=== PATIENT | male | born 1965 | race Caucasian/White ===

== ENCOUNTER 2016-11-08 11:37 | Observation (INO) ==
[2016-11-08] MEDS ORDERED: NITROGLYCERIN 2% OINT 1 INCH/GM PACK TOP STA (11:48)
[2016-11-08] MEDS ORDERED: MORPHINE 2 MG/1 ML SYRINGE IV STA (11:48)
[2016-11-08] MEDS ORDERED: ENOXAPARIN 100 MG/ML SYRINGE SUBCUT STA (11:48)
[2016-11-08] MEDS ORDERED: METOPROLOL TARTRATE 5 MG/5 ML VIAL IV STA (11:48)
[2016-11-08] MEDS ORDERED: ONDANSETRON 4 MG/2 ML VIAL IV STA (11:48)
[2016-11-08] MEDS ORDERED: ASPIRIN 325 MG TABLET PO STA (11:48)
[2016-11-08 12:00] LABS: Basophils % 0.6 % (0.0-0.8); Eosinophils # 0.5 10*3/uL (0.0-0.87); Eosinophils % 6.3 % (0.00-10.9); Hematocrit 42.1 VOL% (42.0-52.0); Hemoglobin 13.8 GM/DL (14.0-18.0); Immature Granulocytes % 0.1 %; Immature Granulocytes Absolute 0.01 #; Lymphocytes # 2.1 10*3/uL (1.4-4.0); Lymphocytes % 29.1 % (21.2-54.2); Mean Corpuscular HGB Conc 32.8 GM/DL (32-36); Mean Corpuscular Hemoglobin 29 PG (27-34); Mean Corpuscular Volume 87.5 FL (87-102); Mean Platelet Volume 9.7 FL (9.6-12.0); Monocytes # 0.6 10*3/uL (0.11-0.8); Monocytes % 8.7 % (1.7-12.7); Neutrophils # 3.9 10*3/uL (1.4-7.4); Neutrophils % 55.2 % (38.7-73.9); Platelet Count 263 T/CUMM (130-400); Red Blood Count 4.81 MC/CUMM (3.8-5.5); Red Cell Distribution Width 13.2 % (9.3-17.3); White Blood Count 7.1 T/CUMM (4-12)
[2016-11-08] MEDS ORDERED: METOPROLOL TARTRATE 5 MG/5 ML VIAL IV ONE (12:01)
[2016-11-08] MEDS ORDERED: ONDANSETRON 4 MG/2 ML VIAL ONE (12:01)
[2016-11-08] MEDS ORDERED: MORPHINE 2 MG/1 ML SYRINGE ONE (12:01)
[2016-11-08] MEDS ORDERED: ENOXAPARIN 120 MG/0.8 ML SYRINGE SUBCUT ONE (12:01)
--- NOTE | 2016-11-08 12:01 | Emergency Department Note ---
Angel Oliva Meredith, am scribing for, and in the presence of, Armando Bonilla MD 11: 50. Irene Oliva James D, MD, personally performed the services described in this documentation, ascribed by Key Ortiz in my presence, and it is both accurate and complete . 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 Describes as sharp. +shortness of breath. +diaphoresis. Took aspirin 81mg x 3 prior to arrival. Mode of Arrival: Wheelchair Limitations: No Limitations Source: Patient, Old Records Reviewed, RN Notes Reviewed Time Seen by Provider: 11/08/16 11:48 - History of Present Illness HPI Narrative: Pt is a 51 y/o white male reporting to the ED with c/o sharp, left-sided chest pain which radiates into the left arm, onset 20 minutes PRODUCTION COST ESTIMATOR. He confirms shortness of breath, diaphoresis, and productive cough with white sputum. Pt took 3 Aspirins PRODUCTION COST ESTIMATOR. He has a history of HTN. He had a heart cath [address] Marcelo but she did not find anything abnormal. Onset (ago): minute(s) Consistency: constant Quality: sharp Allergies/Adverse Reactions: Allergies Allergy/AdvReac Type Severity Reaction Status Date / Time No Known Allergies Allergy Verified 11/08/16 11:42 Home Medications: Home Medications Medication Instructions Recorded Confirmed Type Candesartan Cilexetil [Candesartan 16 mg PO QAM 11/08/16 11/08/16 History Cilexetil] Review of System - Review of System 12 point system: reviewed and no additional remarkable complaints except as stated - Review of System Constitutional: Present: as per HPI, diaphoresis Respiratory: Present: as per HPI, cough, other (SOB) Cardiovascular: Present: as per HPI, chest pain Musculoskeletal: Present: as per HPI, arm pain (left radiating from chest) Medical,Surgical,& Family Hx - Medical History Cardio: History of: Hypertension - Surgical History Orthopedic Surgeries: Patient denies;: Total Knee Replacement - Family History Family History: Denies;: Additional Family History - Social History Smoking Status: Never smoker Frequency of Alcohol Use: None Type of Drug Use: None Exam Physical Examination: GENERAL: This is an obese white male in no apparent distress. VITAL SIGNS: Temperature: 98.6, Pulse: 85, Respirations: 20, Blood pressure: 187 /136, O2 Saturation: 99 HEENT: Head is normocephalic and atraumatic. Pupils are equally round and reactive to light. Extraocular movement are intact. Oropharynx is benign with moist mucous membranes. NECK: Neck is soft and supple without tenderness. There are no masses. There is no lymphadenopathy. LUNGS: Lungs are clear to auscultation bilaterally. Chest rises symmetrically. There is no chest wall tenderness. CV: Heart is regular rate and rhythm without murmurs, rubs, or gallops. ABDOMEN: Abdomen is soft, non-tender to palpation. There are no abnormal masses palpated. There is no organomegaly. Bowel sounds are present and active. SKIN: Skin is warm and dry. No rash. EXTREMITIES: Patient has full range of motion without tenderness. There is no pedal edema. NEUROLOGIC: Awake, alert, and oriented x4. Cranial nerves II through XII are grossly intact. There are no motorsensory deficits. PSYCHIATRIC: Normal affect. Normal mood. Vital Signs: Vital Signs Temperature 98.6 F 11/08/16 11:37 Pulse Rate 85 11/08/16 11:37 Respiratory Rate 20 11/08/16 11:37 Blood Pressure 187/136 11/08/16 11:37 O2 Sat by Pulse Oximetry 99 11/08/16 11:37 Course - Consultations Consultation #1: Discussed with cardiology. Patient will be admitted to their service. Time: 12:55 Results - Labs CBC & BMP: 11/08/16 11:47 11/08/16 11:47 Lab Results: I have reviewed the patients labs Labs: Laboratory Tests 11/08/16 11:47 WBC 7.1 RBC 4.81 Hgb 13.8 L Hct 42.1 Plt Count 263 Laboratory Tests 11/08/16 11:47 INR 1.0 PT Patient/Control Mix 10.0 Circ Anticoag PTT 27.3 Laboratory Tests 11/08/16 11/08/16 11:47 11:47 Sodium 142 Potassium 4.2 Chloride 105 Carbon Dioxide 28 BUN 19 H Creatinine 0.80 BUN/Creatinine Ratio 23.00 H Troponin I < 0.015 Globulin 3.7 H Albumin/Globulin Ratio 1.0 L - EKG EKG results: interpreted by ERMD - Impressions EKG: Normal sinus rhythm with a rate of 81, occasional PVCs, left axis deviation , nonspecific ST-T wave changes. - Diagnostic Findings Procedure: Chest x-ray: image reviewed by me, report reviewed by me (No actue cardiopulmonary process. No significant interval change from the previous study. ) Disposition Clinical Impression: Chest pain, Essential hypertension Case discussed with: patient Disposition: Still a Patient Condition: Stable
[2016-11-08] MEDS ORDERED: NITROGLYCERIN SL 0.4 MG TABLET SL ONE (12:02)
[2016-11-08] MEDS: NITROGLYCERIN SL 0.4 MG TABLET SL PRN ×3 (12:07→13:40)
[2016-11-08 12:12] LABS: Partial Thromboplastin Time 27.3 SECS (0-40)
[2016-11-08] MEDS ORDERED: NITROGLYCERIN 2% OINT 1 INCH/GM PACK TOP ONE (12:18)
[2016-11-08 12:25] LABS: Alanine Aminotransferase 34 U/L (16-61); Albumin 3.8 G/DL (3.4-5.0); Alkaline Phosphatase 82 U/L (45-117); Aspartate Amino Transferase 16 U/L (0-37); Bilirubin,Total < 0.39 MG/DL (0.2-1.0); Blood Urea Nitrogen 19 MG/DL (7-18); Glucose 95 MG/DL (74-106); Osmolality,Calculated 284.1 MOS/KG (273-304); Potassium 4.2 MMOL/L (3.5-5.1); Sodium 142 MMOL/L (136-145); Total Protein 7.5 G/DL (6.4-8.3)
--- NOTE | 2016-11-08 12:31 | XRay Report ---
History: Chest pain Date: 11/08/2016 Study: Chest x-ray PA and lateral Comparison exam: Chest x-ray October 03, 2014 The cardiac silhouette is not enlarged. The mediastinal contours are stable. The pulmonary vasculature is not engorged. There is no gross pleural effusion. The lungs are generally clear and well expanded. There is [id number] thoracic spondylosis. Impression: No acute cardiopulmonary process. No significant interval change from the previous study PROCEDURE INTERPRETED AT [facility] DEPARTMENT OF RADIOLOGY Final Report Signed by: Dr. Meryl Horton
[2016-11-08] MEDS ORDERED: MAGNESIUM SULF RIDER 2 GM in PREMIX 1 EACH IV PRN (14:04)
[2016-11-08] MEDS ORDERED: ONDANSETRON 4 MG/2 ML VIAL IV PRN (14:04)
[2016-11-08] MEDS ORDERED: MAGNESIUM SULF RIDER 4 GM in PREMIX 1 EACH IV PRN (14:04)
[2016-11-08] MEDS ORDERED: MORPHINE 2 MG/1 ML SYRINGE IV PRN (14:04)
--- NOTE | 2016-11-08 15:01 | EKG Report ---
Stationary ECG Study [facility] Test Date: 11/08/2016 2:56:28 PM Pat Name: CHARLES ALLAN Department: Room: 277 Gender: M Graphic Production Artist: FLORA : 1965 Requested by: Armando Moctezuma Order Number: [id number] Reading MD: KAROL HINOJOAS Intervals [place] Rate: 75 P: 36 VA: 155 QRS: -30 QRSD: 116 T: 74 QT: 367 QTc: 396 Interpretive Statements SINUS RHYTHM BORDERLINE BORDERLINE LEFT AXIS DEVIATION MODERATE INTRAVENTRICULAR CONDUCTION DELAY NONSPECIFIC T-WAVE ABNORMALITY Electronically Signed On 11-08-16 21:00:21 HI LO DRIVER by KAROL HINOJOSA [email or web address]
--- NOTE | 2016-11-08 15:01 | EKG Report ---
Stationary ECG Study [facility] Test Date: 11/08/2016 11:43:09 AM Pat Name: CHARLES ALLAN Department: Room: 277 Gender: M Classroom Assistant: : 1965 Requested by: Armando Moctezuma Order Number: [id number] Reading MD: KAROL HINOJOSA Intervals [place] Rate: 81 P: 46 AR: 155 QRS: -27 QRSD: 116 T: 75 QT: 348 QTc: 385 Interpretive Statements SINUS RHYTHM WITH VENTRICULAR PREMATURE COMPLEX BORDERLINE LEFT AXIS DEVIATION MODERATE INTRAVENTRICULAR CONDUCTION DELAY NONSPECIFIC T-WAVE ABNORMALITY Electronically Signed On 11-08-16 20:54:55 SALVAGE MEND WORKER by KAROL HINOJOSA [id number]
[2016-11-08] MEDS ORDERED: BISACODYL 5 MG TABLET PO PRN (15:59)
[2016-11-08] MEDS ORDERED: POTASSIUM CHLORIDE 20 MEQ TABLET PO PRN (15:59)
[2016-11-08] MEDS ORDERED: ZALEPLON 5 MG CAPSULE PO PRN (15:59)
[2016-11-08] MEDS ORDERED: ACETAMINOPHEN 325 MG TABLET PO PRN (15:59)
[2016-11-08] MEDS: SODIUM CHLORIDE 0.9% 1,000 ML IV SCH ×2 (16:09→23:24)
--- NOTE | 2016-11-08 20:01 | Cardiology History & Physical ---
Hazel, Faby Li RN, am scribing for, and in the presence of, Faustino Dhaliwal MD 19:57. Assessment and Plan - Time spent with patient Time spent with patient: Greater than 30 minutes (1) Chest pain Status: Acute Assessment and plan: Thus far his troponin is negative. His pain has some typical and atypical features. We will continue to cycle troponins and EKGs. We will set him up for stress test in the morning to rule out for cardiac ischemia. Certainly his ECG did not reveal any acute changes. His pain is certainly atypical for angina or anginal equivalent. We'll plan on carry out stress test tomorrow to evaluate this. Current Visit: Yes (2) Essential hypertension Status: Acute Assessment and plan: Has been elevated since admission. He tells me he does not check his blood pressure routinely. We will resume his home medications and adjust as needed. Current Visit: Yes (3) Obstructive sleep apnea Status: Acute Assessment and plan: Noncompliant. Reports he has not worn his CPAP in 3-4 years. Current Visit: Yes (4) Hyperlipidemia Status: Acute Assessment and plan: Not currently on statin therapy. Will recheck lipid panel in the morning. Current Visit: Yes History of Present Illness Chief complaint: chest pain History of present illness: Mr. Munguia is a 51 year old male who has been seen in the remote past by Dr. Marcelo. His primary care provider is Dr. Young. He has a history of hypertension, obstructive sleep apnea, and hyperlipidemia but is not currently on statin therapy. He is noncompliant with CPAP and reports he has not worn his CPAP in 3-4 years. He has risk factors significant for: hypertension, obesity. He has never smoked. He is a nondrinker and denies drug use. He presents to the emergency room today with complaints of chest pain that has been ongoing for the last 2 weeks. He tells me that the pain was worse today and his boss thought he should come and be evaluated. 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 He tells me his pain is in his left chest wall and radiates to his left shoulder and down his left arm. He describes this pain as being sharp and stabbing and rates it as a 5/10. He reports his chest pain usually comes on when he is at rest at home but he also has pain on exertion when he is at work. Today, he had associated symptoms of diaphoresis and mild shortness of breath. He denies palpitations, dizziness, lightheadedness, syncope, nausea, vomiting, recent fever or chills. He also complains of a cough which has been ongoing for the last 3 weeks although he denies having been sick. He reports he occasionally is able to produce white sputum with his cough. His pain today was unrelieved by nitroglycerin but eventually subsided after administration of morphine. His pain is nonreproducible. He can identify no alleviating or aggravating factors. The patient's pain is certainly atypical for angina or anginal equivalent. He previously underwent left heart catheterizations on 08/20/11 and 01/24/12 for episodes of chest pain. At the time of both catheterizations, he was found to have no significant coronary artery disease with normal ejection fraction. Last echocardiogram was done 11/25/13 and revealed ejection fractin of 50-55%, grade I /IV diastolic dysfunction, mild mitral regurgitation, and mild tricuspid regurgitation. He has a past surgical history of sinus surgery done last year. His troponin on admission was negative. EKG shows sinus rhythm with right bundle branch block and nonspecific T-wave abnormality. We will continue to cycle serial troponins and EKGs. We will let him eat supper tonight and keep him NPO after midnight for stress test in the morning. I do not go Home Medications Medication Instructions Recorded Confirmed Type Candesartan Cilexetil [Candesartan 16 mg PO QAM 11/08/16 11/08/16 History Cilexetil] Allergies Allergy/AdvReac Type Severity Reaction Status Date / Time No Known Allergies Allergy Verified 11/08/16 11:42 - Constitutional Constitutional: Absent: anorexia, chills, daytime sleepiness, excessive sweating , fatigue, fever(s), frequent falls, headache(s), increased appetite, lethargy, malaise, night sweats, weakness, weight gain, weight loss - EENT Eyes: Absent: blurry vision, diplopia, loss of vision Ears: Absent: decreased hearing, ear discharge, ear pain Nose, mouth and throat: Present: epistaxis (had sinus surgery last year and has had nose bleeds off and on). Absent: dysphagia, headache(s), hoarseness, lip swelling, nasal congestion, neck mass, neck pain, sinus pressure, sore throat, throat swelling, tongue swelling, vertigo - Cardiovascular Cardiovascular: Present: chest pain at rest, chest pain with activity, diaphoresis, dyspnea, dyspnea on exertion, radiating jaw, neck or arm pain. Absent: claudication, edema, lightheadedness, orthopnea, palpitations, PND - Respiratory Respiratory: Present: as per HPI, cough (with occasional white sputum production ), dyspnea, dyspnea on exertion, snoring. Absent: hemoptysis, wheezing, pain on inspiration - Gastrointestinal Gastrointestinal: Present: as per HPI. Absent: abdominal pain, bloating, change in bowel habits, constipation, diarrhea, dysphagia, heartburn, hematemesis, hematochezia, loose stools, melena, nausea, vomiting - Genitourinary Genitourinary: Absent: difficulty urinating, dysuria, flank pain, hematuria, urinary frequency, urinary incontinence - Musculoskeletal Musculoskeletal: Absent: arthralgias, back pain, joint swelling, limited range of motion, muscle cramps, muscle weakness, myalgias - Neurological Neurological: Absent: abnormal gait, abnormal speech, behavioral changes, confusion, convulsions, disequilibrium, dizziness, focal weakness, frequent falls, headache(s), memory loss, numbness, paresthesias, radicular pain, syncope , tremor(s) - Psychiatric Psychiatric: Absent: anxiety, confusion, depression, memory loss, panic attacks - Endocrine Endocrine: Absent: cold intolerance, fatigue, heat intolerance, polydipsia, polyphagia - Hematologic/Lymphatic Hematologic/Lymphatic: Absent: easy bleeding, easy bruising, lymphadenopathy Medical,Surgical,& Family Hx - Medical History Cardio: History of: Hypertension HEENT: History of: HEENT Problems (sinus surgery 2016) - Surgical History Cardiac Surgeries: Sugical HX of: Cardiac Catheterization Orthopedic Surgeries: Patient denies;: Total Knee Replacement - Family History Family History: Reports;: Family Diabetes, Family Heart Disease, Family Hypertension, Family Stroke Denies;: Additional Family History - Social History Smoking Status: Never smoker Frequency of Alcohol Use: None Type of Drug Use: None Cardiology Physical Exam - Constitutional Vitals: Vital Signs Temp Pulse Resp BP Pulse Ox 98.6 F 115 H 18 129/82 97 11/08/16 11:37 11/08/16 13:30 11/08/16 13:30 11/08/16 13:30 11/08/16 13:30 General appearance: no acute distress, over weight - Head Head exam: Present: normal inspection, normocephalic - Eye Eye exam: Absent: conjunctival injection, periorbital swelling, scleral icterus Pupils: Present: JOSE ENRIQUE. Absent: dilated - ENT ENT exam: Present: normal exam, normal external ear exam - Neck Neck exam: Present: normal inspection. Absent: tenderness - Respiratory Respiratory exam: Present: clear to auscultation bilaterally. Absent: chest wall tenderness, rales, rhonchi, stridor, wheezes - Cardiovascular Cardiovascular exam: Present: regular rate and rhythm. Absent: carotid bruit, diastolic murmur, systolic murmur - GI/Abdominal GI/Abdominal exam: Present: normal bowel sounds, soft. Absent: mass, tenderness - Extremities Exam Extremities exam: Present: normal inspection, other (2+ DP pulses bilaterally). Absent: calf tenderness, edema - Back Exam Back exam: Present: normal inspection. Absent: vertebral tenderness - Neurological Exam Neurological exam: Present: alert, oriented X3, other (grossly intact, no resting or essential tremor) - Psychiatric Psychiatric exam: Present: normal affect, normal mood - Skin Skin exam: Present: warm, dry. Absent: cyanosis Result/EKG - Labs CBC & BMP: 11/08/16 11:47 11/08/16 11:47 Lab Results: I have reviewed the past 24 hour labs Labs: Laboratory Results - last 24 hr 11/08/16 11/08/16 15:06 18:40 Troponin I < 0.015 < 0.015 - Impressions Impressions: ECG with normal sinus rhythm with nonspecific intraventricular conduction delay with some left axis deviation. - EKG EKG results: interpreted by me, sinus rhythm (with right bundle branch block and nonspecific T-wave abnormality) I, Faustino Dhaliwal MD, personally performed the services described in this documentation, ascribed by Faby Li RN in my presence, and it is both accurate and complete .
[2016-11-09] MEDS ORDERED: cloNIDine 0.1 MG TABLET PO PRN (02:34)
[2016-11-09] MEDS ORDERED: cloNIDine 0.1 MG TABLET PO ONE (02:34)
[2016-11-09 04:11] LABS: Calcium 8.3 MG/DL (8.5-10.1); Magnesium 2.2 MG/DL (1.8-2.4); Osmolality,Calculated 286.8 MOS/KG (273-304); Potassium 4.7 MMOL/L (3.5-5.1); Risk Ratio 5.18; VLDL CHOLESTEROL 33.8 MG/DL
--- NOTE | 2016-11-09 06:31 | EKG Report ---
Stationary ECG Study [facility] Test Date: 11/08/2016 6:13:26 PM Pat Name: CHARLES ALLAN Department: Room: 277 Gender: M Mobile Unit Assistant: : 1965 Requested by: Armando Moctezuma Order Number: [id number] Reading MD: SEBASTIAN CARVALHO Intervals [place] Rate: 76 P: 51 GA: 152 QRS: -21 QRSD: 127 T: 85 QT: 389 QTc: 419 Interpretive Statements SINUS RHYTHM POSSIBLE LATERAL MYOCARDIAL INFARCTION, OF INDETERMINATE AGE Electronically Signed On 11-09-16 10:06:31 MANAGER PROGRAM MANAGEMENT by SEBASTIAN CARVALHO [email or web address]
[2016-11-09] MEDS: SODIUM CHLORIDE 0.9% 1,000 ML IV SCH ×2 (07:57→14:22)
[2016-11-09] MEDS ORDERED: PANTOPRAZOLE 40 MG TABLET PO SCH (09:00)
[2016-11-09] MEDS ORDERED: ENOXAPARIN 40 MG/0.4 ML SYRINGE SUBCUT SCH (09:00)
[2016-11-09] MEDS ORDERED: CANDESARTAN 8 MG PO SCH (09:00)
[2016-11-09 11:21] VITALS: BP 157/94
--- NOTE | 2016-11-09 11:55 | Event Note ---
Patient underwent Cardiolite stress testing without problems. He achieved target heart rate easily without changes in his ST segments, no arrhythmia. No chest pain, heaviness or tightness. Moderate dyspnea on exertion, failure exercise tolerance. Now, he is being sent to nuclear medicine for final scan. cardiology to read, interpret and advise.
--- NOTE | 2016-11-09 11:58 | Cardiology Progress Note ---
<Ana Stevens E - Last Filed: 11/09/16 12:02> Assessment and Plan - Time spent with patient Time spent with patient: Less than 30 minutes (1) Chest pain Status: Acute (2) Essential hypertension Status: Acute (3) Obstructive sleep apnea Status: Acute (4) Hyperlipidemia Status: Acute Cardiology - PN: Subj Interval history: Mr. Munguia is a 51 year old male who has been seen in the remote past by Dr. Marcelo. His primary care provider is Dr. Young. He has a history of hypertension, obstructive sleep apnea, and hyperlipidemia but is not currently on statin therapy. He is noncompliant with CPAP and reports he has not worn his CPAP in 3-4 years. He has risk factors significant for: hypertension, obesity. He has never smoked. He is a nondrinker and denies drug use. He presented to the emergency room yesterday with complaints of chest pain, fatigue and shortness of breath. His cardiac biomarkers were negative. His EKG was unremarkable. He is scheduled for nuclear stress testing this morning and he has been nothing by mouth. Overnight, he tells me he is feeling better. His chest pain is much improved. Pressure is elevated this morning prior to stress testing. He does acknowledge that he has been told he snores quite loudly, sometimes he wakes with air hunger. His neck is 44 cm or greater in circumference and he is chronically fatigued. Mallampati Airway Class III noted. She may benefit from outpatient study we will arrange this at discharge. Patient could do a better job of controlling his blood pressure 8 outpatient. We will reiterate the importance of this and adjust medications while he is hospitalized. Exam (Progress Note) - Constitutional Vitals: Period Temp Pulse Resp BP Sys/Joseph Pulse Ox Last 24 Hr 96.6 F-97.5 F 64-115 16-20 123-168/73-106 95-98 Exam: General: Appears well with no apparent distress. Pleasant and cooperative. Appears comfortable. HEENT: PERRL, normocephalic, atraumatic. Mucous membranes moist. No jaundice noted. Conjunctiva moist and clear, sclerae anicteric Neck: No JVD/HJR, no thyromegaly or lymphadenopathy noted. No carotid bruit appreciated Cardiac: Regular rate and rhythm. No murmur rub or gallop. Lungs: Clear to auscultation without accessory muscle use to assist the respiratory pattern. Not requiring oxygen. Abdomen: Soft, bowel sounds normoactive. Nontender and nondistended. No abdominal bruit or thrill noted. No masses noted. Musculoskeletal: No fluid collection. Decreased range of motion is noted. Extremities: No clubbing, cyanosis noted. No edema noted. Upper extremity pulses 2+. Lower extremity pulses 2+. Capillary refill less than 3 seconds. Skin: No unusual lesions or rashes. No skin breakdown appreciated. Neuro: Awake, alert and oriented 3. Moves all extremities well without hemiparesis or paralysis. No essential tremor is appreciated. Result/EKG - Labs CBC & BMP: 11/08/16 11:47 11/09/16 02:57 Lab Results: I have reviewed the past 24 hour labs Labs: Laboratory Results - last 24 hr 11/08/16 11/08/16 11/09/16 15:06 18:40 02:57 Sodium 144 Potassium 4.7 Chloride 110 H Carbon Dioxide 23 Anion Gap 15.7 H BUN 15 Creatinine 0.80 GFR Calculation 142 BUN/Creatinine Ratio 18.00 Glucose 100 Calculated Osmolality 286.8 Calcium 8.3 L Magnesium 2.2 Troponin I < 0.015 < 0.015 Triglycerides 169 H Cholesterol 176 LDL Cholesterol 118.0 VLDL Cholesterol 33.8 HDL Cholesterol 34 L Heart Disease Risk Ratio 5.18 - Diagnostic Findings Procedure: Chest x-ray: report reviewed by me - EKG EKG results: interpreted by dc EKG shows: sinus rhythm Specialty Discharge - Follow Up or Referrals Follow up with: Alondra Marcelo MD [Physician] - (6 weeks follow-up appointment. However, please schedule for echo at [facility] within the next 1-2 weeks RE: uncontrolled hypertension, LVH. Dr. Pruitt to read) Elenita Ambriz MD [Physician] - (1-2 weeks. Non-compliant patient with sleep apnea) Stephanie Young CFNP [REFERRING DOCTOR/PRACTITIONER] - (1-2 weeks. ) <Faustino Dhaliwal - Last Filed: 11/09/16 18:32> Assessment and Plan (1) Chest pain Status: Resolved (2) Essential hypertension Status: Chronic (3) Obstructive sleep apnea Status: Chronic (4) Hyperlipidemia Status: Deleted Cardiology - PN: Subj Interval history: Patient personally interviewed and examined. Chart reviewed. I discussed his case with Ana Stevens NP. Potentially to be discharged. Follow-up as an outpatient with Dr. Marcelo be appropriate and arranged. Exam (Progress Note) - Constitutional Vitals: Period Temp Pulse Resp BP Sys/Joseph Pulse Ox Last 24 Hr 96.6 F-97.1 F 64-79 16-20 127-168/76-106 95-98 Result/EKG - Labs CBC & BMP: 11/08/16 11:47 11/09/16 02:57 Labs: Laboratory Results - last 24 hr 11/08/16 11/09/16 18:40 02:57 Sodium 144 Potassium 4.7 Chloride 110 H Carbon Dioxide 23 Anion Gap 15.7 H BUN 15 Creatinine 0.80 GFR Calculation 142 BUN/Creatinine Ratio 18.00 Glucose 100 Calculated Osmolality 286.8 Calcium 8.3 L Magnesium 2.2 Troponin I < 0.015 Triglycerides 169 H Cholesterol 176 LDL Cholesterol 118.0 VLDL Cholesterol 33.8 HDL Cholesterol 34 L Heart Disease Risk Ratio 5.18
--- NOTE | 2016-11-09 12:24 | Discharge Summary ---
<Ana Stevens - Last Filed: 11/09/16 12:11> Hospital Course - Hospital Course Hospital Course: : Mr. Munguia is a 51 year old male who has been seen in the remote past by Dr. Marcelo. His primary care provider is Dr. Stephanie Young. He has a history of hypertension, obstructive sleep apnea, and hyperlipidemia but is not currently on statin therapy. He is noncompliant with CPAP and reports he has not worn his CPAP in 3-4 years. He has risk factors significant for: hypertension, obesity. He is a non-smoked. He presented to the emergency room 11/08/2016 with complaints of atypical chest pain occurring for 2 weeks prior to seeking medical advice. Cardiac biomarkers were negative and EKG revealed sinus rhythm with right bundle branch block and nonspecific T-wave abnormality. He previously underwent left heart catheterizations on 08/20/11 and 01/24/12 with no significant coronary artery disease noted. Last echocardiogram was done 11/25/13 and revealed ejection fractin of 50-55%, grade I/IV diastolic dysfunction, mild mitral regurgitation, and mild tricuspid regurgitation. This morning, patient underwent nuclear stress testing and achieved target heart rate without difficulty. No EKG changes, no ST segment changes, occasional PVC noted at target heart rate. Dr. Hira Lund read the nuclear study and reported there was no evidence of reversible ischemia, EF 49%. Patient's blood pressure was suboptimally controlled during the hospital stay. He also is admittedly noncompliant with his sleep device. We discussed increasing his Candesartan Cilexetil 16 mg orally daily to a higher dose. He will be discharged home with Candesartan Celixitil 32 mg orally daily. He is also agreeable for referral back to Dr. Ambriz for reevaluation of sleep device parameters. Again, he has been without his CPAP device for many years and understands the importance of getting his sleep disorder under control. He has a Mallampati Airway Class IV, neck circumference greater than 44 cm, known sleep apnea. He definitely needs re-evaluation from sleep medicine. He will be given a follow-up appointment with Dr. Alondra Marcelo in 6 weeks. I will order a 2-D echocardiogram to be performed outpatient at [facility] [place] at the [facility] in the next 2-3 weeks. His EF by stress testing was 49%. I suspect, once his blood pressure is better controlled and his sleep apnea addressed, this should normalize. He is being given a 1-2 week follow-up appointment with Dr. Stephanie Young, his primary care provider and I will make sure she gets a copy of this noted discharge. Anxious for release home, patient is being discharged home in stable condition. New medication: Candesartan Cilexetil 32mg orally daily Prilosec 20mg orally daily - Time spent with patient Time with patient DS: Less than 30 minutes Diagnosis - Discharge Diagnosis (1) Chest pain Status: Resolved (2) Essential hypertension Status: Chronic (3) Obstructive sleep apnea Status: Chronic Specialty Discharge - Follow Up or Referrals Follow up with: Alondra Marcelo MD [Physician] - (6 weeks follow-up appointment. However, please schedule for echo at [facility] within the next 1-2 weeks RE: uncontrolled hypertension, LVH. Dr. Pruitt to read) Stephanie Young CFNP [REFERRING DOCTOR/PRACTITIONER] - (1-2 weeks. ) Elenita Ambriz MD [Physician] - (1-2 weeks. Non-compliant patient with sleep apnea) Discharge Plan - Discharge Data Disposition: Disch To Home/Self Care Condition at Discharge: Stable Discharge Diet: heart healthy Activity: resume usual activities as tolerated Hygiene: no restrictions Weight Bearing at Discharge: full weight bearing Driving: no restrictions Contact your physician if you experience:: fever over 101, Difficulty voiding, Redness or swelling, Nausea/Vomiting, Shortness of breath, Bleeding, pain uncontrolled by pain medications - Discharge Medications New Omeprazole 20 mg PO DAILY #30 capsule Candesartan Cilexetil [Atacand] 32 mg PO DAILY 30 Days Discontinued Candesartan Cilexetil [Candesartan Cilexetil] 16 mg PO QAM - Follow Up or Referral Follow Up: Alondra Marcelo MD [Physician] - (6 weeks follow-up appointment. However, please schedule for echo at [facility] within the next 1-2 weeks RE: uncontrolled hypertension, LVH. Dr. Pruitt to read) Elenita Ambriz MD [Physician] - (1-2 weeks. Non-compliant patient with sleep apnea) Stephanie Young CFNP [REFERRING DOCTOR/PRACTITIONER] - (1-2 weeks. ) - Forms/Instructions Instructions: Chest Pain (DC) Exam - Constitutional Vitals: Period Temp Pulse Resp BP Sys/Joseph Pulse Ox Last 24 Hr 96.6 F-97.5 F 64-115 16-20 123-168/73-106 95-98 Exam: General: Appears well with no apparent distress. Pleasant and cooperative. Appears comfortable. HEENT: PERRL, normocephalic, atraumatic. Mucous membranes moist. No jaundice noted. Conjunctiva moist and clear, sclerae anicteric Neck: No JVD/HJR, no thyromegaly or lymphadenopathy noted. No carotid bruit appreciated Cardiac: Regular rate and rhythm. No murmur rub or gallop. Lungs: Clear to auscultation without accessory muscle use to assist the respiratory pattern. Not requiring oxygen. Abdomen: Soft, bowel sounds normoactive. Nontender and nondistended. No abdominal bruit or thrill noted. No masses noted. Musculoskeletal: No fluid collection. Decreased range of motion is noted. Extremities: No clubbing, cyanosis noted. No edema noted. Upper extremity pulses 2+. Lower extremity pulses 2+. Capillary refill less than 3 seconds. Skin: No unusual lesions or rashes. No skin breakdown appreciated. Neuro: Awake, alert and oriented 3. Moves all extremities well without hemiparesis or paralysis. No essential tremor is appreciated. Discharge Results Procedures and tests throughout hospitalization: Pending Orders 11/09/16 04:00 NM louie perf SPECT rest or str IN AM 11/10/16 04:00 BMP w/ Mg [Basic Metabolic Panel w/Mg] IN AM Labs on day of discharge: Labs from last 24 hours 11/09/16 11/08/16 11/08/16 02:57 18:40 15:06 Sodium 144 Potassium 4.7 Chloride 110 H Carbon Dioxide 23 Anion Gap 15.7 H BUN 15 Creatinine 0.80 GFR Calculation 142 BUN/Creatinine Ratio 18.00 Glucose 100 Calculated Osmolality 286.8 Calcium 8.3 L Magnesium 2.2 Troponin I < 0.015 < 0.015 Triglycerides 169 H Cholesterol 176 LDL Cholesterol 118.0 VLDL Cholesterol 33.8 HDL Cholesterol 34 L Heart Disease Risk Ratio 5.18 - Imaging and Cardiology Cardiology Procedure: report reviewed by me Procedure: Chest x-ray: report reviewed by me DS: Provider Date of admission: 11/08/16 12:57 Primary care physician: . No PCP Attending physician on admission: Hira Lund MD Consults: 11/08/16 14:06 Consult to Pharmacy [CONS] Routine Reason for Pharmacy Consult: Adjust Meds Renal Funct 11/09/16 12:37 Consult to Sleep Center [CONS] Routine Reason for Sleep Center: Sleep Center Physician Discharging clinician: Ana Stevens NP Expected date of discharge: 11/09/16 <Faustino Dhaliwal - Last Filed: 11/09/16 13:18> Hospital Course - Hospital Course Hospital Course: Patient interviewed again today and examined. Chart reviewed. Discussed patient's case Ana Stevens NP. Agree with all the notes. I did encourage her to be compliant with follow-up and therapy. Diagnosis - Discharge Diagnosis (1) Chest pain Status: Resolved (2) Essential hypertension Status: Chronic (3) Obstructive sleep apnea Status: Chronic (4) Hyperlipidemia Status: Deleted
--- NOTE | 2016-11-09 13:41 | Nuclear Medicine Report ---
STRESS MYOCARDIAL PERFUSION STUDY DATE: 11/09/2016 Mr. Munguia had chest pain symptoms and is now undergoing a stress myocardial perfusion study for c ardiac risk evaluation. The patient underwent a rest myocardial perfusion study after 10 mCi dose o f Technetium-99m bound to Sestamibi. He then underwent a full Zaki protocol stress test. The geo ent exercised for a total of approximately 7-1/2 minutes on a full Zaki protocol, achieving a maxim um heart rate of 85% of his age-predicted maximum. During exercise, he had no clinical or EKG signs of cardiac ischemia. He had a normal hemodynamic response to exercise with a maximal blood pressur e of 180/102. Near peak exercise, he received a 30 mCi dose of Technetium 99m bound to Sestamibi an d repeat myocardial perfusion images were performed. There was some mild motion artifact on the eddie dy. Comparison of the stress and rest myocardial perfusion images reveals evidence of significant c ardiac ischemia. There is some soft tissue attenuation primarily in the inferior and apical regions associated with obesity, Quantitative perfusion analysis calculates a summed difference score of 3 , which is consistent with a low risk test. Quantitative gated images calculate a left ventricular ejection fraction of 47%. There is grossly normal regional wall motion. IMPRESSION: 1. CLINICALLY AND ELECTRICALLY NEGATIVE MAXIMAL FULL ZAKI PROTOCOL STRESS TEST. 2. I DO NOT SEE EVIDENCE OF SIGNIFICANT ISCHEMIA ON PERFUSION IMAGING. THERE IS SOME MILD SOFT TIS QIAN ATTENUATION PROBABLY FROM THE DIAPHRAGM AND OBESITY. 3. LEFT VENTRICULAR EJECTION FRACTION IS AT THE LOWER LIMITS OF NORMAL TO MILDLY REDUCED. CONCLUSION: These results are most consistent with a low risk of significant cardiac ischemia. Procedure performed and interpreted at [facility] Department of Radiology.
== END 2016-11-09 14:36 | disposition home or self-care (01) ==
LOC: EDUNIT# → EDBD → N.EDINP 11:37 → N.ED 11:37 → N.TELES 13:53
PROVIDERS: ADMIT Internal Medicine Cardiovascular Disease; ATTEND Internal Medicine Cardiovascular Disease

== ENCOUNTER 2018-12-26 08:24 | Observation (INO) ==
[2018-12-26 09:04] LABS: Basophils # 0.1 10*3/uL (0.0-0.2); Basophils % 0.8 % (0.0-0.8); Eosinophils # 0.4 10*3/uL (0.0-0.87); Eosinophils % 6.2 % (0.00-10.9); Hematocrit 42.4 VOL% (42.0-52.0); Hemoglobin 13.2 GM/DL (14.0-18.0); Immature Granulocytes % 0.2 %; Immature Granulocytes Absolute 0.01 #; Lymphocytes # 1.6 10*3/uL (1.4-4.0); Lymphocytes % 24.7 % (21.2-54.2); Mean Corpuscular HGB Conc 31.1 GM/DL (32-36); Mean Corpuscular Hemoglobin 28 PG (27-34); Mean Corpuscular Volume 90.4 FL (87-102); Mean Platelet Volume 9.9 FL (9.6-12.0); Monocytes # 0.6 10*3/uL (0.11-0.8); Monocytes % 9.3 % (1.7-12.7); Neutrophils # 3.7 10*3/uL (1.4-7.4); Neutrophils % 58.8 % (38.7-73.9); Platelet Count 256 T/CUMM (130-400); Red Blood Count 4.69 MC/CUMM (3.8-5.5); Red Cell Distribution Width 13.7 % (9.3-17.3); White Blood Count 6.3 T/CUMM (4-12)
[2018-12-26 09:12] LABS: INR 0.9; PT Patient Result 10.1 SECS; Partial Thromboplastin Time 24.9 SECS (0-40)
[2018-12-26 09:24] LABS: Albumin 3.6 G/DL (3.4-5.0); Bilirubin,Total 0.7 MG/DL (0.2-1.0); Calcium 8.6 MG/DL (8.5-10.1); Osmolality,Calculated 281.5 MOS/KG (273-304); Potassium 3.9 MMOL/L (3.5-5.1); Total Protein 7.1 G/DL (6.4-8.3)
[2018-12-26] MEDS ORDERED: MORPHINE 4 MG/1 ML VIAL IV STA ×2 (09:47→13:53)
[2018-12-26] MEDS ORDERED: ASPIRIN 325 MG TABLET PO STA (09:47)
[2018-12-26] MEDS ORDERED: NITROGLYCERIN 2% OINT 1 INCH/GM PACK TOP STA (09:47)
[2018-12-26] MEDS ORDERED: ONDANSETRON 4 MG/2 ML VIAL IV STA (09:47)
[2018-12-26] MEDS ORDERED: ONDANSETRON 4 MG/2 ML VIAL IV PRN (10:18)
[2018-12-26] MEDS ORDERED: KETOROLAC 30 MG/1 ML VIAL IV STA (10:21)
[2018-12-26 10:40] LABS: Risk Ratio 5.8; VLDL CHOLESTEROL 46.6 MG/DL
[2018-12-26] MEDS: ENOXAPARIN 40 MG/0.4 ML SYRINGE SUBCUT SCH (11:39)
[2018-12-26] MEDS: PANTOPRAZOLE 40 MG TABLET PO SCH (11:39)
[2018-12-26 13:42] LABS: Troponin I < 0.015 NG/ML (0.00-0.045)
[2018-12-26 14:07] LABS: Barbiturates Screen,Urine Negative (Negative); Benzodiazepines Screen,Urine Negative (Negative); Cannabinoid Screen,Urine Negative (Negative); Opiate Screen,Urine Positive (Negative); Phencyclidine Screen,Urine Negative (Negative)
[2018-12-26] MEDS: LOSARTAN/HCTZ 50-12.5 MG TABLET PO SCH (14:50)
[2018-12-26 15:25] LABS: Troponin I < 0.015 NG/ML (0.00-0.045)
[2018-12-26 18:10] LABS: Troponin I < 0.015 NG/ML (0.00-0.045)
[2018-12-26] MEDS ORDERED: ROSUVASTATIN 20 MG TABLET PO SCH (21:00)
[2018-12-27] MEDS ORDERED: REGADENOSON 0.4 MG/5 ML SYRINGE IV ONE (07:34)
[2018-12-27] MEDS ORDERED: ASPIRIN 325 MG TABLET PO SCH (09:00)
[2018-12-27] MEDS: PANTOPRAZOLE 40 MG TABLET PO SCH (09:27)
[2018-12-27] MEDS: LOSARTAN/HCTZ 50-12.5 MG TABLET PO SCH (09:27)
[2018-12-27] MEDS: ENOXAPARIN 40 MG/0.4 ML SYRINGE SUBCUT SCH (09:33)
[2018-12-27 12:14] VITALS: BP 143/79
== END 2018-12-27 12:52 | disposition home or self-care (01) ==
LOC: N.ED 08:24 → N.EDINP 08:24 → N.TELEN 14:06
PROVIDERS: ADMIT Hospitalist; ATTEND Hospitalist

== ENCOUNTER 2019-04-09 16:24 | Observation (INO) ==
[2019-04-09] MEDS ORDERED: MORPHINE 4 MG/1 ML VIAL IV STA (16:57)
[2019-04-09] MEDS ORDERED: ALUM/MAG/SIMETH/LIDO VISC 1:1 30 ML BOTTLE PO STA (16:57)
[2019-04-09] MEDS ORDERED: ONDANSETRON 4 MG/2 ML VIAL IV STA (16:57)
[2019-04-09] MEDS ORDERED: ASPIRIN 325 MG TABLET PO STA (16:57)
[2019-04-09] MEDS ORDERED: SODIUM CHLORIDE 0.9% 1,000 ML IV STA (16:57)
[2019-04-09 17:38] LABS: Basophils # 0.1 10*3/uL (0.0-0.2); Basophils % 0.7 % (0.0-0.8); Eosinophils # 0.2 10*3/uL (0.0-0.87); Eosinophils % 3.2 % (0.00-10.9); Hematocrit 35.7 VOL% (42.0-52.0); Hemoglobin 11.3 GM/DL (14.0-18.0); Immature Granulocytes % 0.3 %; Immature Granulocytes Absolute 0.02 #; Lymphocytes # 1.8 10*3/uL (1.4-4.0); Lymphocytes % 24.5 % (21.2-54.2); Mean Corpuscular HGB Conc 31.7 GM/DL (32-36); Mean Corpuscular Volume 91.8 FL (87-102); Mean Platelet Volume 9.9 FL (9.6-12.0); Monocytes % 10.2 % (1.7-12.7); Neutrophils % 61.1 % (38.7-73.9); Platelet Count 243 T/CUMM (130-400); Red Blood Count 3.89 MC/CUMM (3.8-5.5); Red Cell Distribution Width 13.5 % (9.3-17.3); White Blood Count 7.1 T/CUMM (4-12)
[2019-04-09 17:49] LABS: INR 0.9; PT Patient Result 10.1 SECS
[2019-04-09 18:01] LABS: Alanine Aminotransferase 22 U/L (16-61); Albumin 3.4 G/DL (3.4-5.0); Alkaline Phosphatase 62 U/L (45-117); Aspartate Amino Transferase 15 U/L (0-37); Bilirubin,Total < 0.39 MG/DL (0.2-1.0); Blood Urea Nitrogen 30 MG/DL (7-18); Calcium 8.2 MG/DL (8.5-10.1); Glucose 112 MG/DL (74-106); Osmolality,Calculated 289.1 MOS/KG (273-304); Total Protein 6.6 G/DL (6.4-8.3); Troponin I < 0.015 NG/ML (0.00-0.045)
[2019-04-09 19:42] LABS: Apearance,Urine CLEAR (Clear); Bilirubin,Urine Negative (Negative); Blood, Urine Negative (Negative); Glucose,Urine (UA) Negative (Negative); Ketones,Urine Negative (Negative); Mucus,Urine Occasional /LPF (Occasional); Nitrite,Urine Negative (Negative); Protein,Urine Negative; RBC,Urine 1 /HPF (0-4); Squamous Epithelial Cell,Urine Occasional /HPF (0-10); Urine Color Yellow (Yellow); Urine Specific Gravity 1.021 (1.001-1.035); Urine Urobilinogen < 2.0 EU/DL (0.2-1.0); WBC,Urine <1 /HPF (0-6)
[2019-04-09 19:43] LABS: Barbiturates Screen,Urine Negative (Negative); Benzodiazepines Screen,Urine Negative (Negative); Cannabinoid Screen,Urine Negative (Negative); Opiate Screen,Urine Positive (Negative); Phencyclidine Screen,Urine Negative (Negative)
[2019-04-09 20:16] VITALS: BP 114/78
[2019-04-09] MEDS ORDERED: ENOXAPARIN 40 MG/0.4 ML SYRINGE SUBCUT SCH (21:00)
[2019-04-09] MEDS ORDERED: MORPHINE 4 MG/1 ML VIAL IV PRN (21:32)
[2019-04-09] MEDS ORDERED: ROSUVASTATIN 20 MG TABLET PO SCH (21:32)
[2019-04-09] MEDS ORDERED: DOCUSATE SODIUM 100 MG CAPSULE PO PRN (21:32)
[2019-04-09] MEDS ORDERED: ACETAMINOPHEN 325 MG TABLET PO PRN (21:32)
[2019-04-09] MEDS ORDERED: traZODone 50 MG TABLET PO PRN (21:32)
[2019-04-09] MEDS: SODIUM CHLORIDE 0.9% 1,000 ML IV SCH (21:50)
[2019-04-09 23:17] LABS: Thyroid Stimulating Hormone 0.852 uIU/ml (0.358-3.74); Troponin I < 0.015 NG/ML (0.00-0.045)
[2019-04-10 04:42] LABS: Basophils % 0.5 % (0.0-0.8); Eosinophils # 0.2 10*3/uL (0.0-0.87); Eosinophils % 3.5 % (0.00-10.9); Hemoglobin 10.9 GM/DL (14.0-18.0); Immature Granulocytes % 0.2 %; Immature Granulocytes Absolute 0.01 #; Lymphocytes # 2.1 10*3/uL (1.4-4.0); Lymphocytes % 32.5 % (21.2-54.2); Mean Corpuscular HGB Conc 31.1 GM/DL (32-36); Mean Corpuscular Volume 93.1 FL (87-102); Mean Platelet Volume 9.8 FL (9.6-12.0); Monocytes % 8.5 % (1.7-12.7); Neutrophils % 54.8 % (38.7-73.9); Platelet Count 221 T/CUMM (130-400); Red Blood Count 3.76 MC/CUMM (3.8-5.5); Red Cell Distribution Width 13.5 % (9.3-17.3); White Blood Count 6.6 T/CUMM (4-12)
[2019-04-10 04:52] LABS: Blood Urea Nitrogen 26 MG/DL (7-18); Calcium 7.6 MG/DL (8.5-10.1); Glucose 104 MG/DL (74-106); HDL Cholesterol 31 MG/DL (40-60); Osmolality,Calculated 287.1 MOS/KG (273-304); Risk Ratio 3.58; Triglycerides 161 MG/DL (2-150); Troponin I < 0.015 NG/ML (0.00-0.045); VLDL CHOLESTEROL 32.2 MG/DL
[2019-04-10] MEDS: SODIUM CHLORIDE 0.9% 1,000 ML IV SCH (06:33)
[2019-04-10] MEDS ORDERED: ASPIRIN 325 MG TABLET PO SCH (09:00)
[2019-04-10] MEDS ORDERED: PANTOPRAZOLE 40 MG TABLET PO SCH (09:00)
[2019-04-10] MEDS ORDERED: LOSARTAN/HCTZ 50-12.5 MG TABLET PO SCH (10:30)
[2019-04-10] MEDS ORDERED: NAPROXEN 250 MG TABLET PO PRN (10:59)
== END 2019-04-10 12:43 | disposition home or self-care (01) ==
LOC: EDUNIT# → EDBD → N.EDINP 16:24 → N.ED 16:24 → SUATTDRO 19:19 → N.CC 20:33
PROVIDERS: ADMIT Internal Medicine; ATTEND Internal Medicine Cardiovascular Disease

== ENCOUNTER 2019-07-22 14:48 | Observation (INO) ==
[2019-07-22 15:30] LABS: Basophils # 0.1 10*3/uL (0.0-0.2); Basophils % 0.6 % (0.0-0.8); Eosinophils # 0.3 10*3/uL (0.0-0.87); Eosinophils % 2.4 % (0.00-10.9); Hematocrit 43.6 VOL% (42.0-52.0); Hemoglobin 14.3 GM/DL (14.0-18.0); Immature Granulocytes % 0.3 %; Immature Granulocytes Absolute 0.04 #; Lymphocytes # 1.9 10*3/uL (1.4-4.0); Lymphocytes % 16.7 % (21.2-54.2); Mean Corpuscular HGB Conc 32.8 GM/DL (32-36); Mean Corpuscular Volume 90.3 FL (87-102); Mean Platelet Volume 9.8 FL (9.6-12.0); Monocytes % 6.8 % (1.7-12.7); Neutrophils % 73.2 % (38.7-73.9); Platelet Count 314 T/CUMM (130-400); Red Blood Count 4.83 MC/CUMM (3.8-5.5); Red Cell Distribution Width 13.5 % (9.3-17.3); White Blood Count 11.5 T/CUMM (4-12)
[2019-07-22] MEDS ORDERED: SODIUM CHLORIDE 0.9% 1,000 ML IV STA (15:35)
[2019-07-22 15:42] LABS: INR 0.9; Partial Thromboplastin Time 25.6 SECS (20.8-36.0)
[2019-07-22 15:54] LABS: Bilirubin,Total 0.4 MG/DL (0.2-1.0); Calcium 9.6 MG/DL (8.5-10.1); Osmolality,Calculated 281.5 MOS/KG (273-304); Total Protein 7.7 G/DL (6.4-8.3)
[2019-07-22] MEDS ORDERED: MORPHINE 4 MG/1 ML VIAL IV PRN (16:44)
[2019-07-22] MEDS ORDERED: MAGNESIUM SULF RIDER 2 GM in PREMIX 1 EACH IV PRN (16:44)
[2019-07-22] MEDS ORDERED: POTASSIUM CHLORIDE 20 MEQ TABLET PO PRN (16:44)
[2019-07-22] MEDS ORDERED: ACETAMINOPHEN 325 MG TABLET PO PRN (16:44)
[2019-07-22] MEDS ORDERED: ALUM/MAG/SIMETH/LIDO VISC 1:1 30 ML BOTTLE PO PRN (16:44)
[2019-07-22] MEDS ORDERED: ONDANSETRON 4 MG/2 ML VIAL IV PRN (16:44)
[2019-07-22] MEDS: SODIUM CHLORIDE 0.45% 1,000 ML IV SCH (17:42)
[2019-07-22] MEDS: ENOXAPARIN 120 MG/0.8 ML SYRINGE SUBCUT SCH (17:42)
[2019-07-22] MEDS ORDERED: PNEUMOCOCCAL VACCINE (13 VALENT) 0.5 ML SYRINGE IM ONE (18:36)
[2019-07-23] MEDS: SODIUM CHLORIDE 0.45% 1,000 ML IV SCH (03:20)
[2019-07-23] MEDS: ENOXAPARIN 120 MG/0.8 ML SYRINGE SUBCUT SCH ×2 (05:18→17:12)
[2019-07-23 05:49] LABS: Basophils # 0.1 10*3/uL (0.0-0.2); Basophils % 0.7 % (0.0-0.8); Eosinophils # 0.5 10*3/uL (0.0-0.87); Eosinophils % 6.4 % (0.00-10.9); Hematocrit 40.1 VOL% (42.0-52.0); Hemoglobin 12.7 GM/DL (14.0-18.0); Immature Granulocytes % 0.3 %; Immature Granulocytes Absolute 0.02 #; Lymphocytes # 2.1 10*3/uL (1.4-4.0); Lymphocytes % 28.2 % (21.2-54.2); Mean Corpuscular HGB Conc 31.7 GM/DL (32-36); Mean Corpuscular Volume 91.6 FL (87-102); Monocytes % 8.6 % (1.7-12.7); Neutrophils % 55.8 % (38.7-73.9); Platelet Count 256 T/CUMM (130-400); Red Blood Count 4.38 MC/CUMM (3.8-5.5); Red Cell Distribution Width 13.6 % (9.3-17.3); White Blood Count 7.3 T/CUMM (4-12)
[2019-07-23 06:25] LABS: Albumin 3.5 G/DL (3.4-5.0); Bilirubin,Total 0.8 MG/DL (0.2-1.0); Calcium 8.9 MG/DL (8.5-10.1); Total Protein 7.1 G/DL (6.4-8.3)
[2019-07-23 06:26] LABS: Osmolality,Calculated 280.5 MOS/KG (273-304); Thyroid Stimulating Hormone 0.742 uIU/ml (0.358-3.74)
[2019-07-23] MEDS ORDERED: PANTOPRAZOLE 40 MG TABLET PO SCH (09:00)
[2019-07-23] MEDS ORDERED: INFLUENZA VIRUS VACCINE 0.5 ML SYRINGE IM ONE (09:00)
[2019-07-23 11:44] VITALS: BP 143/96
[2019-07-23] MEDS ORDERED: ROSUVASTATIN 20 MG TABLET PO SCH (21:00)
[2019-07-24] MEDS ORDERED: LOSARTAN/HCTZ 50-12.5 MG TABLET PO SCH (09:00)
[2019-07-24] MEDS ORDERED: ASPIRIN 325 MG TABLET PO SCH (09:00)
== END 2019-07-23 18:00 | disposition home or self-care (01) ==
LOC: N.EDINP 14:48 → N.ED 14:48 → N.EDINP 18:15 → N.TELES 18:21
PROVIDERS: ADMIT Internal Medicine; ATTEND Internal Medicine